=== PATIENT | female | born 1940 ===

== ENCOUNTER 2021-02-28 06:36 | Day surgery (SDC) | payer OTHER ==
[~2021-02-28 06:36] MED LIST: CHILDREN'S ASPI81 MG PO; COZAAR100 MG PO; HUMULIN 70100 UNIT/2 SUBCUTANEO; JARDIANCE25 MG PO; LIPOFEN50 MG PO; ZOCOR20 MG PO
== END 2021-02-28 15:20 | disposition home or self-care (01) ==
LOC: CIR.AMB 06:36
PROVIDERS: ATTEND Obstetrics & Gynecology
DX: N84.0 Polyp of corpus uteri (principal); Z20.822 Contact with and (suspected) exposure to COVID-19